=== PATIENT | male | born 1945 | race Caucasian/White ===

== ENCOUNTER 2019-07-11 12:53 | Emergency (ER) | payer MEDICARE, BC ==
--- NOTE | 2019-07-11 14:39 | EDM.PDOC ---
ED HPI GENERAL MEDICAL PROBLEM - General Chief Complaint: ENT Problem Stated Complaint: NOSE BLEED Time Seen by Provider: 07/11/19 14:18 Source of Information: Reports: Patient History Limitations: Reports: No Limitations - History of Present Illness INITIAL COMMENTS - FREE TEXT/NARRATIVE: Patient is a 73-year-old male brought in for bilateral nosebleeds. He was lifting weights this morning. The weights fell off the end of the bar came back and hit him below the nose and the lip. Since that time he has had bilateral nosebleed. He was seen at [facility] prior to coming to the ER. Patient takes a baby aspirin every other day. Today was his day to take this medication and he took it this morning. He denies a history of recurrent epistaxis. Has no known bleeding disorders. Treatments CANVAS MARKER: Reports: Other (see below) Other Treatments CANVAS MARKER: pacing and ice - Related Data Allergies Allergy/AdvReac Type Severity Reaction Status Date / Time No Known Allergies Allergy Verified 07/11/19 13:38 Home Meds: Home Meds Albuterol [Ventolin HFA] 1 - 2 puff INH ASDIRECTED PRN 07/11/19 [History] Aspirin [Halfprin] 81 mg PO DAILY 07/11/19 [History] Fluticasone Propionate [Flovent] 2 spray INH DAILY 07/11/19 [History] L.acidoph,Paracasei, B.lactis [Probiotic] 1 cap PO DAILY 07/11/19 [History] Memantine HCl [Namenda] 10 mg PO DAILY 07/11/19 [History] Methylcellulose [Fiber] 625 mg PO DAILY 07/11/19 [History] Multivitamin with Minerals [Multiple Vitamin] 1 tab PO DAILY 07/11/19 [History] Pantoprazole Sodium [Protonix] 40 mg PO DAILY 07/11/19 [History] Simvastatin 10 mg PO DAILY 07/11/19 [History] Triamcinolone Acetonide [Triamcinolone Acetonide 0.1% Crm] 1 applic TOP ASDIRECTED 07/11/19 [History] guaiFENesin [Mucinex] 0 mg PO ASDIRECTED 07/11/19 [History] ED ROS ENT - Review of Systems Review Of Systems: Comprehensive ROS is negative, except as noted in HPI. ED EXAM, ENT - Physical Exam Exam: See Below Exam Limited By: No Limitations General Appearance: Alert, WD/WN, No Apparent Distress Nose: Dried Blood, Other (Scant active bleeding from a small abrasion to the right middle septum. No active bleeding in the left nare, however there is a small superficial abrasion to the anterior septum.). No: Nasal Swelling, Nasal Tenderness, Nasal Ecchymosis Mouth/Throat: Normal Inspection, Normal Gums, Normal Lips, Normal Oropharynx, Normal Teeth Head: Atraumatic, Normocephalic Respiratory/Chest: No Respiratory Distress, Lungs Clear, Normal Breath Sounds, No Accessory Muscle Use, Chest Non-Tender Cardiovascular: Normal Peripheral Pulses, Regular Rate, Rhythm, No Edema, No Gallop, No JVD, No Murmur, No Rub Neurological: Alert, Oriented, CN II-XII Intact, Normal Cognition, Normal Gait, Normal Reflexes, No Motor/Sensory Deficits Psychiatric: Normal Affect, Normal Mood Skin: Warm, Dry, Intact, Normal Color, No Rash ED ENT PROCEDURES - Epistaxis Procedure Indication: Epistaxis, Controlled Recent anticoagulants/antiplatlets: Yes Uncontrolled HTN: No Recent septal/nasal surgery: No Site of bleeding: Right Nare, Left Nare Clearing of clots: Patient Blew Nose Ice pack to area: No Chemical cautery: Silver Nitrate Topical (Bilateral anterior septum) Course - Vital Signs Last Recorded V/S: Last Vital Signs Temp 98.5 F 07/11/19 13:34 Pulse 54 L 07/11/19 13:34 Resp 20 07/11/19 13:34 BP 152/76 H 07/11/19 13:34 Pulse Ox 97 07/11/19 13:34 - Orders/Labs/Meds Labs: Laboratory Tests 07/11/19 Range/Units 14:54 WBC 6.82 (4.23-9.07) K/mm3 RBC 4.33 L (4.63-6.08) M/mm3 Hgb 12.8 L (13.7-17.5) gm/dl Hct 38.7 L (40.1-51.0) % MCV 89.4 (79.0-92.2) fl MCH 29.6 (25.7-32.2) pg MCHC 33.1 (32.2-35.5) g/dl RDW Std Deviation 45.8 H (35.1-43.9) fL Plt Count 150 L (163-337) K/mm3 MPV 11.6 (9.4-12.3) fl Neut % (Auto) 74.2 H (34.0-67.9) % Lymph % (Auto) 15.7 L (21.8-53.1) % [place] % (Auto) 7.6 (5.3-12.2) % Eos % (Auto) 1.8 (0.8-7.0) Baso % (Auto) 0.1 (0.1-1.2) % Neut # (Auto) 5.06 (1.78-5.38) K/mm3 Lymph # (Auto) 1.07 L (1.32-3.57) K/mm3 [place] # (Auto) 0.52 (0.30-0.82) K/mm3 Eos # (Auto) 0.12 (0.04-0.54) K/mm3 Baso # (Auto) 0.01 (0.01-0.08) K/mm3 - Re-Assessments/Exams Free Text/Narrative Re-Assessment/Exam: Patient is a 73-year-old male presenting to the emergency department with complaints of bilateral nosebleeds after being hit below his nose with a bar this morning. He has no pain, however has been having bilateral nosebleeds since that time. He was seen at [facility] however, after numerous attempts with packing and nasal spray, they were unable to get the bleeding to stop. On presentation to the ER, he did have gauze packing in his bilateral nares plate. Packing was removed. Patient blew his nose. There was no active bleeding, however there were 2 small areas to the bilateral anterior septum that appear to have been the area that was bleeding. These areas were cauterized with silver nitrate. I have ordered a CBC to evaluate patient's hemoglobin. 07/11/19 15:35 Globin was found to be slightly low at 12.8. Patient was able to get up and move around without recurrence of bleeding, however approximately 45 minutes later his left nare did start oozing of blood again. On exam, the bleeding is coming from higher in the nostril than the area that was cauterized. I was unable to identify a specific vessel to cauterize. 7.5 anterior posterior Rhino Rocket has been placed. I will reassess in about 15 minutes. 07/11/19 16:00 There is been no further bleeding from the right nare, however the balloon was slightly soft. I did add an additional 1 cc of air. There is not been any bleeding from the left nare thus far. We will have the patient stay for just a while longer to ensure there is no recurrence of bleeding to the left nare. 07/11/19 16:40 There is been no further bleeding from the right or the left nare. We will discharge the patient home with instructions to return if the bleeding should recur and he is unable to get it to stop. Recommend that he leave the Rhino Rocket in until Sunday evening. He was provided with a syringe to deflate the balloon and remove the packing when it is time. Discharge instructions as documented. Departure - Departure Time of Disposition: 16:41 Disposition: Home, Self-Care 01 Condition: Good Clinical Impression: Epistaxis - Discharge Information *PRESCRIPTION DRUG MONITORING PROGRAM REVIEWED*: No *COPY OF PRESCRIPTION DRUG MONITORING REPORT IN PATIENT SAFIA: No Instructions: Nosebleed, [id number] Referrals: Jeremy Decker MD [Primary Care Provider] - Forms: ED Department Discharge Additional Instructions: You were seen in the emergency department today for bilateral nosebleed after hitting your nose with a bar this morning. Blood work was done in the ER and found to be essentially normal. Your hemoglobin was a little low at 12.3, however, this is not overly concerning. While in the ER, cauterization with silver nitrate was done in both nares. Unfortunately the right side nare did start bleeding again. A Rhino Rocket nasal packing was applied. Since that was applied there is been no further bleeding. Recommend that you keep this packing in place until Sunday evening. After that time you may use a syringe provided to deflate the balloon and pull the packing from the nose. If you should have a recurrence of bleeding from the right side, you may instill an extra 1-2 mils of air into the balloon to see if that stops it. If it continues to bleed, or if you develop bleeding of the left nare that will not stop, recommend that you return to the emergency department. Sepsis Event Note - Evaluation Sepsis Screening Result: No Definite Risk - Focused Exam Vital Signs: Vital Signs Temp Pulse Resp BP Pulse Ox 07/11/19 13:34 98.5 F 54 L 20 152/76 H 97 Date Exam was Performed: 07/11/19 Time Exam was Performed: 17:21
== END 2019-07-11 16:49 | disposition home or self-care (01) ==
LOC: JD.ED 12:53
DX: R04.0 Epistaxis (principal); Z79.82 Long term (current) use of aspirin; Z79.899 Other long term (current) drug therapy
CPT/HCPCS: 30901; 30903; 36415; 85025; 99282; 99283-25